=== PATIENT | male | born 1960 | race Caucasian/White ===

== ENCOUNTER 2022-09-05 07:23 | Emergency (ER) | payer OTHER, SELFPAY ==
[2022-09-05 07:29] VITALS: BP 118/88; PULSE 93; RESP 18; TEMP 36.1; O2SAT 97; BMI 32.5
[2022-09-05] MEDS: lidocaine HCL 2 % MULTIDOSE 20 ML VIAL INJECTION (08:03)
--- NOTE | 2022-09-05 08:14 | ED.WOUNDLAC ---
HPI - Wound/Laceration General Chief Complaint: Laceration/Wound Stated Complaint: Laceration on left arm Time Seen by Provider: 09/05/22 07:50 History of Present Illness HPI narrative: Patient is a 62-year-old gentleman who was working this morning when piece of metal fell off of objects he was lifting. This piece of metal struck him in the left posterior forearm causing a 4 cm laceration. The laceration is superficial but still requires closure. He aggressively cleaned the wound at the site and we aggressively cleaned the wound here. He has no bony pain. He has no deficits in activity or range of motion. Hemostasis has been achieved. Patient's last tetanus shot was 2007. Related Data Home Medications Medication Instructions Recorded Confirmed atorvastatin 20 mg tablet 20 mg PO DAILY 09/05/22 09/05/22 losartan 25 mg tablet 25 mg PO DAILY 09/05/22 09/05/22 Allergies Allergy/AdvReac Type Severity Reaction Status Date / Time No Known Drug Allergies Allergy Verified 09/05/22 07:32 Review of Systems Status of ROS: Reports: 10 or more systems reviewed and unremarkable except as noted in History and below Exam Narrative: Exam Narrative: EXAM GENERAL: Patient appears comfortable and well. EYES: No scleral icterus. LYMPH: No supraclavicular or cervical lymphadenopathy. SKIN: Laceration as described above left anterior forearm. No signs of cellulitis or infection. EXT: No dependent lower extremity pedal edema. ABD: Soft, non tender, non distended. PSYCH: Good eye contact, speech is not pressured. Const: Vital Signs, click to edit/add: Vital Signs - 24 hr 09/05/22 07:29 Temperature 97.0 F L Pulse Rate [Right Pulse Oximeter] 93 Respiratory Rate 18 Blood Pressure [Ri ght Upper Arm] 118/88 Pulse Oximetry 97 Oxygen Delivery Me thod Room Air Course Course Hospital Course: After explaining the risks and benefits I did provide local anesthesia with 2% lidocaine without epinephrine. Wound was aggressively cleaned. The laceration was closed with 6 running 3-0 Ethilon sutures. Wound was dressed and patient was given a tetanus shot. Vital Signs Vital signs: Initial Vital Signs Temperature 97.0 F L 09/05/22 07:29 Temperature Source Temporal Artery Scan 09/05/22 07:29 Pulse Rate 93 09/05/22 07:29 Respiratory Rate 18 09/05/22 07:29 Blood Pressure 118/88 09/05/22 07:29 Blood Pressure Mean 98 09/05/22 07:29 Blood Pressure Position Sitting 09/05/22 07:29 Pulse Oximetry 97 09/05/22 07:29 Oxygen Delivery Method Room Air 09/05/22 07:29 Vital Signs Temperature 97.0 F L 09/05/22 07:29 Pulse Rate 93 09/05/22 07:29 Respiratory Rate 18 09/05/22 07:29 Blood Pressure 118/88 09/05/22 07:29 Pulse Oximetry 97 09/05/22 07:29 Oxygen Delivery Method Room Air 09/05/22 07:29 Temperature 97.0 F L 09/05/22 07:29 Pulse Rate 93 09/05/22 07:29 Respiratory Rate 18 09/05/22 07:29 Blood Pressure 118/88 09/05/22 07:29 Pulse Oximetry 97 09/05/22 07:29 Oxygen Delivery Method Room Air 09/05/22 07:29 MDM - Wound/Laceration MDM Narrative Medical decision making narrative: As above Differential Diagnosis Differential diagnosis: Likely laceration, abscess, abrasion and avulsion of skin Discharge Plan Discharge Clinical Impression: Laceration Patient Disposition: Home, Self-Care Condition: Stable Instructions: Laceration (ED) Additional Instructions: Daily dressing changes Suture removal in 8 days Activity Level: No Restrictions Discharge Diet: Regular Prescriptions: No Action atorvastatin 20 mg tablet 20 mg PO DAILY losartan 25 mg tablet 25 mg PO DAILY Stand Alone Forms: MyHealth Info Instructions
[2022-09-05] MEDS: TETANUS/DIPHTH/PERTUSSIS 0.5 ML SYRINGE IM (08:47)
== END 2022-09-05 09:06 | disposition home or self-care (01) ==
PROVIDERS: Emergency Provider Internal Medicine
DX: S51.812A Laceration without foreign body of left forearm, initial encounter (principal); W26.8XXA Contact with other sharp object(s), not elsewhere classified, initial encounter
CPT/HCPCS: 12002; 90471; 90715; 99283